=== PATIENT | male | born 1995 | race Caucasian/White ===

== ENCOUNTER → 2017-01-04 | Outpatient (CLI) | payer BC ==
--- NOTE | 2017-01-04 12:06 | DIAGNOSTIC IMAGING REPORT ---
R SHOULDER MIN 2 VIEWS CLINICAL HISTORY: Right shoulder pain following injury. COMPARISON: None FINDINGS: Alignment of the right humeral joint is anatomic. There is equivocal widening of the AC joint interval. There is no elevation of the distal right clavicle. Note is made of a 1.3 cm ossific density along the posterior inferior glenoid. This is age indeterminate. No acute fracture of the proximal right humerus is identified. IMPRESSION: 1. 1.3 cm ossific/calcific density along the posterior inferior glenoid. This is age indeterminate and may reflect a loose body or a reverse Bankart. 2. Anatomic alignment of the right glenohumeral joint. No proximal right humeral fracture. 3. Equivocal widening of the AC joint interval. This is likely within normal limits although a mild AC joint separation could have this appearance. Electronically signed by: Daniel Guardado M.D. 01/04/2017 12:05 PM Dictated Date/Time: 01/04/2017 12:01 PM
== END | disposition home or self-care (01) ==
LOC: C.RDSM 15:31
PROVIDERS: ATTEND Family Medicine
DX: M25.511 Pain in right shoulder (principal)